=== PATIENT | male | born 1955 | race African-American/Black ===

== ENCOUNTER 2019-06-25 13:59 | Emergency (ER) | payer OTHER ==
[2019-06-25 14:04] VITALS: BMI 21.5
[2019-06-25] MEDS ORDERED: methylPREDNISolone NA SUCC 125 MG/2 ML VIAL IVPB ONE (14:05)
[2019-06-25] MEDS ORDERED: ALBUTEROL SO4 2.5/IPRATROPIUM 0.5 INH SOL 3 ML VIAL.NEB. NEB ONE ×2 (14:05→14:14)
--- NOTE | 2019-06-25 14:05 | PDOC ---
History of Present Illness - General Chief Complaint: Asthma Stated Complaint: SOB Time Seen by Provider: 06/25/19 14:04 History Source: Patient - History of Present Illness Initial Comments: 06/25/19 17:45 Mr. Blue is a 63 y/o man with hx asthma, HTN p/w shortness of breath for 2-3 days. He reports intermittent cough and fatigue for the last 4 weeks, but reports that 2 days ago his symptoms worsened. He reports that he has an albuterol rescue inhaler for his asthma but no maintenance inhalers or medications for his asthma. He reports cough productive of green sputum, as well as generalized body aches and fatigue. He denies any pain in his chest, fevers, nausea, vomiting, abdominal pain. He has never been intubated or admitted for his asthma. Past History - Past Medical History Allergies/Adverse Reactions: Allergies Allergy/AdvReac Type Severity Reaction Status Date / Time No Known Allergies Allergy Verified 06/25/19 14:05 Home Medications: Ambulatory Orders Albuterol Sulfate Inhaler - [Ventolin HFA Inhaler -] 1 - 2 inh PO QID #1 inhaler 06/25/19 Levofloxacin [Levaquin] 750 mg PO DAILY 5 Days #5 tablet 06/25/19 Prednisone [Prednisone 50 MG TABLETS] 50 mg PO DAILY 5 Days #5 tablet 06/25/19 - Psycho Social/Smoking Cessation Hx Smoking History: Never smoked Have you smoked in the past 12 months: No Information on smoking cessation initiated: No Hx Alcohol Use: No Drug/Substance Use Hx: No Review of Systems - Review of Systems Able to Perform ROS?: Yes Comments:: ROS: GENERAL/CONSTITUTIONAL: No fever or chills. No weakness. HEAD, EYES, EARS, NOSE AND THROAT: No change in vision. No ear pain or discharge. No sore throat. CARDIOVASCULAR: Shortness of breath, No chest pain RESPIRATORY: Cough, wheezing. No hemoptysis. GASTROINTESTINAL: No nausea, vomiting, diarrhea or constipation. GENITOURINARY: No dysuria, frequency, or change in urination. MUSCULOSKELETAL: No joint or muscle swelling or pain. No neck or back pain. SKIN: No rash NEUROLOGIC: No headache, vertigo, loss of consciousness, or change in strength/ sensation. ENDOCRINE: No increased thirst. No abnormal weight change HEMATOLOGIC/LYMPHATIC: No anemia, easy bleeding, or history of blood clots. ALLERGIC/IMMUNOLOGIC: No hives or skin allergy. *Physical Exam - Vital Signs Last Vital Signs Temp Pulse Resp BP Pulse Ox 97.8 F 116 H 20 108/82 97 06/25/19 14:01 06/25/19 14:01 06/25/19 14:01 06/25/19 14:01 06/25/19 14:01 - Physical Exam PE: GENERAL: Awake, alert, and fully oriented, coughing intermittently throughout exam HEAD: No signs of trauma, normocephalic, atraumatic EYES: PERRLA, EOMI, sclera anicteric, conjunctiva clear ENT: Auricles normal inspection, hearing grossly normal, nares patent, oropharynx clear without exudates. Moist mucosa NECK: Normal ROM, supple, no lymphadenopathy, JVD, or masses LUNGS: Diffuse wheezing bilaterally. Mild distress, speaks full sentences HEART: Regular rate and rhythm, normal S1 and S2, no murmurs, rubs or gallops, peripheral pulses normal and equal bilaterally. ABDOMEN: Soft, nontender, normoactive bowel sounds. No guarding, no rebound. No masses EXTREMITIES : Normal inspection, Normal range of motion, no edema. No clubbing or cyanosis NEUROLOGICAL: Cranial nerves II through XII grossly intact. Normal speech, normal gait, no focal sensorimotor deficits SKIN: Warm, Dry, normal turgor, no rashes or lesions noted ED Treatment Course - LABORATORY CBC & Chemistry Diagram: 06/25/19 14:30 06/25/19 14:30 Medical Decision Making - Medical Decision Making 63M w/hx asthma, extensive smoking history p/w one week of shortness of breath, wheezing, dyspnea on exertion that worsened today consistent with asthma exacerbation. COPD exacerbation also possible given extensive smoking history, although no previously diagnosed COPD. Plan: CBC CMP EKG CXR Cardiac profile Duoneb x3 Solumedrol x1 Dispo: Pending reassessment --- On reassessment s/p duonebs, solumedrol - wheezing improved, though still significant wheezing at bilateral bases. Plan for albuterol nebulizer treatment as well as Mag Sulfate. --- CMP - Cr - 1.8 Patient reports that several years ago he had a kidney biopsy, though he cannot recall the reason. He reports significant family history of CKD in both parents and siblings, including a sister who of complications of CKD. Troponin - negative --- Mr. Blue would like to sign out AMA. Discussed importance of further workup, further breathing treatments given ongoing mild wheezing, inpatient admission. He is fully alert and oriented, is not intoxicated, and understands our concerns and is able to repeat back why we believe that further workup is indicated. Levaquin, steroid course, refill of rescue inhaler sent to his pharmacy. Return precautions given as per AMA discharge paperwork. Discharge - Discharge Information Problems reviewed: Yes Clinical Impression/Diagnosis: Asthma exacerbation Qualifiers: Asthma severity: unspecified severity Asthma persistence: unspecified Qualified Code(s): J45.901 - Unspecified asthma with (acute) exacerbation Condition: Stable Disposition: AGAINST MEDICAL ADVICE - Admission No - Additional Discharge Information Prescriptions: Albuterol Sulfate Inhaler - [Ventolin HFA Inhaler -] 1 - 2 inh PO QID #1 inhaler Levofloxacin [Levaquin] 750 mg PO DAILY 5 Days #5 tablet Prednisone [Prednisone 50 MG TABLETS] 50 mg PO DAILY 5 Days #5 tablet - Follow up/Referral Referrals: Pedro Pablo Gavin [Primary Care Provider] - - Patient Discharge Instructions Patient Printed Discharge Instructions: Asthma -- Adult, DI for Pneumonia -- Adult, DI for Bronchiolitis Additional Instructions: You were seen in the ER for trouble breathing. We treated you for an asthma attack. We are recommending that you stay in the hospital, as discussed. Please return to the hospital if you would like further treatment. We also believe that you have an infection - we sent an antibiotic to your pharmacy. Please take it as directed, once every day for 5 days. We are also prescribing you a steroid - please take it as directed, once a day for five days. Please return to the ER if you have trouble breathing, fevers, weakness, or you would like further treatment. - Post Discharge Activity
[2019-06-25] MEDS ORDERED: methylPREDNISolone NA SUCC 125 MG/2 ML VIAL ONE (14:14)
[2019-06-25] MEDS ORDERED: LACTATED RINGERS SOLUTION 1000 ML INFUS.BAG IV ONE (15:12)
--- NOTE | 2019-06-25 15:12 | PDOC ---
Documentation entered by Jermaine Childers SCRIBE, acting as scribe for Emeli Tidwell DO. Emeli Tidwell DO: This documentation has been prepared by the Alvarado jo Andrys, SCRIBE, under my direction and personally reviewed by me in its entirety. I confirm that the documentation accurately reflects all work, treatment, procedures, and medical decision making performed by me. Attending Attestation - Resident Resident Name: Kahlil Paris - ED Attending Attestation I have performed the following: I have examined & evaluated the patient, The case was reviewed & discussed with the resident, I agree w/resident's findings & plan, Exceptions are as noted - HPI HPI: 06/25/19 15:07 The patient is a 63 year old male with a significant past medical history of asthma and HTN who presents to the ED s/p asthma exacerbation for one week. Patient states he had a cough and generalized weakness one week ago. He states his symptoms worsened and he developed intermittent wheezing and shortness of breath. Patient states he took his albuterol with no relief of present symptoms. Denies fever or chills. Denies nausea, vomiting, or diarrhea. Denies chest pain. Denies any other symptoms. - Physicial Exam PE: 06/25/19 15:07 Constitutional: Awake, alert, oriented. No acute distress. Head: Normocephalic. Atraumatic Eyes: PERRL. EOMI. Conjunctivae are not pale. ENT: + Nasal congestion. Mucous membranes are moist and intact. Posterior pharynx without exudates or erythema. Uvula midline. Neck: Supple. Full ROM. No lymphadenopathy. Cardiovascular: +Tachycardia, Regular rhythm. S1, S2 regular. Distal pulses are 2+ and symmetric. Pulmonary/Chest: + wheezing at bases. No rales or rhonchi. Abdominal: Soft and non-distended. There is no tenderness. No rebound, guarding or rigidity. No organomegaly. No palpable masses. Good bowel sounds. Back: No CVA tenderness. Musculoskeletal: No edema. No cyanosis. No clubbing. Full range of motion in all extremities. Nocalf tenderness. Radial/pedal pulses are intact and 2+ bilaterally Skin: Skin is warm and dry. No petechiae. No purpura. Neurological: Alert and oriented to person, place, and time. Cranial nerves II -XII are grossly intact. Normal speech. Strength is grossly symmetric. No sensory deficits. Psychiatric: Good eye contact. Normal interaction, affect and behavior. - Medical Decision Making 06/25/19 15:10 I, Dr. Emeli Tidwell, DO, attest that this document has been prepared under my direction and personally reviewed by me in its entirety. I further attest, that it accurately reflects all work, treatment, procedures and medical decision -making performed by me. a/p: 63yo male who smokes tobacco with hx of asthma presents for rhinorrhea, sore throat, congesiton, cough, sob -pt actively wheezing upon exam -nebs given, steorids -pt with cough- productive sputum -pt states pna a year ago -will send labs, cxr is clear -flu -will hydrate with fluids -will monitor and reassess -pt currently on neb, tachypnic, tachy 06/25/19 15:44 mildly elevated wbc cr 1.8 pt states unknown baseline - has appt with Dr. Gavin on monday flu neg pt states he feels better still with wheezing will give another neb pt states he does not want to stay for further eval states he will not stay for admission for asthma exacerbation/mucopurulent bronchitis and poss LARISA PMD in the [place] pt states he would rather sign out AMA than stay for asthma treatment speaking in full sentences 06/25/19 16:46 pt states he wants to sign out AMA discussed risks of signing out ama with asthma excerbation and elevated cr pt states he does not want to stay pt will sign ama paperwork Note: The patient insists on leaving the emergency dept and is signing out against medical advice. The patient understands the risks and complications that may result from the refusal of medical care and admission which includes and permanent disability. The patient has the mental capacity of understanding the risks of refusing care and is capable of making an informed decision. The patient was instructed to return to the emergency department should he change his mind regarding medical care or should he condition worsen. The patient signed the Against Medical Advice form. Heart Score/ECG Review - ECG Intrepretation Comment:: 06/25/19 15:12 sinus tach at 105, nl axis, nl interval, no acute st/t wave findings
[2019-06-25 15:16] LABS: BASO % 0.4 % (0-2.0); EOS % 0.7 % (0-4.5); HEMATOCRIT 50.3 % (35.4-49); HEMOGLOBIN 16.7 GM/dL (11.7-16.9); LYMPH % 19.7 % (8-40); MCHC 33.1 g/dl (32.0-35.9); MEAN CELL VOLUME 93.7 fl (80-96); MEAN PLT VOLUME 9.1 fl (7.5-11.1); MONO % 6.3 % (3.8-10.2); NEUT % 72.9 % (42.8-82.8); PLATELET COUNT 269 K/MM3 (134-434); RBC 5.37 M/mm3 (4.00-5.60); RDW 13.8 % (11.9-15.9); WHITE BLOOD COUNT 12.9 K/mm3 (4.0-10.0)
[2019-06-25 15:28] LABS: ALBUMIN 3.6 g/dl (3.4-5.0); ALK PHOS 89 U/L (45-117); ANION GAP 10 MMOL/L (8-16); BILIRUBIN,TOTAL 0.5 mg/dL (0.2-1); BLOOD UREA NITROGEN 23.7 mg/dL (7-18); CALCIUM 9.3 mg/dL (8.5-10.1); CHLORIDE 105 mmol/L (98-107); CO2 24 mmol/L (21-32); CREATININE 1.8 mg/dL (0.55-1.3); GLUCOSE,RANDOM 137 mg/dL (74-106); POTASSIUM 3.8 mmol/L (3.5-5.1); SGOT/AST 22 U/L (15-37); SGPT/ALT 19 U/L (13-61); SODIUM 139 mmol/L (136-145); TOT PROT 7.5 g/dl (6.4-8.2)
[2019-06-25] MEDS ORDERED: ALBUTEROL SO4 0.083% IH SOL 2.5 MG/3 ML VIAL.NEB. NEB ONE ×2 (15:42→15:45)
[2019-06-25 16:31] VITALS: PULSE 84
[2019-06-25] MEDS ORDERED: MAGNESIUM SULF 50% (8.12 MEQ/2 ML-1 GM VIAL) IVPB ONE ×2 (16:37→16:40)
[2019-06-25] MEDS ORDERED: MAGNESIUM 1GM/D5W - 1 GM/100 ML IVPB IVPB ONE (16:42)
[2019-06-25 16:46] VITALS: BP 110/69; TEMP 98.6
--- NOTE | 2019-06-26 17:42 | EKG ---
Test Reason : Blood Pressure : / mmHG Vent. Rate : 105 BPM Atrial Rate : 105 BPM P-R Int : 120 ms QRS Dur : 084 ms QT Int : 376 ms P-R-T Axes : 075 075 086 degrees QTc Int : 496 ms SINUS TACHYCARDIA POSSIBLE LEFT ATRIAL ENLARGEMENT NONSPECIFIC T WAVE ABNORMALITY ABNORMAL ECG NO PREVIOUS ECGS AVAILABLE CLINICAL CORRELATION IS RECOMMENDED Confirmed by MICHAEL IBARRA MD ([id number]) on 06/26/2019 5:41:50 PM Referred By: Confirmed By:MICHAEL IBARRA MD
== END 2019-06-25 17:49 | disposition left against medical advice (07) ==
LOC: JER 13:59
PROC: 3E0F7GC Introduction of Other Therapeutic Substance into Respiratory Tract, Via Natural or Artificial Opening (ICD-10-PCS; principal; 2019-06-25)
PROC: 3E0337Z Introduction of Electrolytic and Water Balance Substance into Peripheral Vein, Percutaneous Approach (ICD-10-PCS; 2019-06-25)
PROC: 3E03329 Introduction of Other Anti-infective into Peripheral Vein, Percutaneous Approach (ICD-10-PCS; 2019-06-25)
PROC: 3E033GC Introduction of Other Therapeutic Substance into Peripheral Vein, Percutaneous Approach (ICD-10-PCS; 2019-06-25)
DX: J45.901 Unspecified asthma with (acute) exacerbation (principal); I10 Essential (primary) hypertension
CPT/HCPCS: 36415; 71045-TC-FY; 80053; 82550; 82553; 84484; 85025; 87804; 93005; 93010; 99282-25